=== PATIENT | male | born 1985 | race Caucasian/White ===

== ENCOUNTER 2023-11-30 06:35 | Day surgery (SDC) | payer OTHER, SELFPAY ==
[2023-11-25 08:34] VITALS: BMI 33.7
--- NOTE | 2023-11-30 | PATH_ITS ---
[facility] Accession Number: [id number] No. of containers..01 Tissue . 01 Material submitted: . flank - FLANK LIPOMAS . 01 Diagnosis: Flank, Excisions: Fragments of mature fibroadipose tissue, consistent with lipoma; see note. . Note: There are focal increased vessels present, therefore an additional consideration could include a benign angiolipoma variant. [facility] 12/06/2023 1027 Local . 01 Electronically signed: . Morgan Velasquez MD, Dermatopathologist NPI- [id number] . 01 Gross description: . The specimen is received in formalin labeled with the patient's name, , and flank lipomas, consists of multiple, yellow, lobulated, soft tissue fragments aggregating to 5.6 x 5.5 x 1.3 cm. Sectioning reveals a yellow, lobulated, unremarkable cut surface. Manual Machinist sections are submitted in cassettes A1-A2. ([id number]) /MRV 12/02/2023 1831 Local . 01 Pathologist provided ICD-10: D17.9 . 01 CPT . 125798 Specimen Comment: A courtesy copy of this report has been sent to [phone] Performed at: 01 [facility] [address] [place] [address] [address] [facility], [place], [place] [id number] MD Osmar Zambrano MD Phone: [phone]
[2023-11-30 06:54] VITALS: BP 139/91; PULSE 68; RESP 16; TEMP 36.4; O2SAT 98; BMI 31.4
[2023-11-30] MEDS: LACTATED RINGERS 1,000 ML 42 ML IV (07:04)
[2023-11-30 07:20] VITALS: BP 107/69; PULSE 68; RESP 16; O2SAT 96
--- NOTE | 2023-11-30 07:29 | SUR.PREOP ---
Patient states that he is feeling hot and somewhat dizzy and flushed. Patient appears pale. Placed patient down flat and rechecked vitals. BP 107/69; blood sugar 97; cool cloth to forehead. After being supine, recheck of blood pressure 121/83. Opened IV fluids for hydration. Symptoms resolved.
--- NOTE | 2023-11-30 07:43 | PM.PREOP ---
Pre-operative Note COVID-19 COVID-19 status: Not tested Interval Note History & Physical reviewed/Exam performed by Physician: Yes Changes to H&P: No ASA Class (for procedural sedation): II
--- NOTE | 2023-11-30 08:18 | SUR.OPER ---
Lateral on a fitzpatrick bag, head on pillow, gel axillary roll in place, bottom leg bent with gel pad under knee to foot, upper leg straight and supported with pillows. Upper arm supported by pillows and secured over bottom arm to padded arm board. Safety belt at hip, tape over blanket lower legs.
[2023-11-30] MEDS: LIDOCAINE 1% 20 ML, EPINEPHrine 0.2 MG INJ (08:27)
[2023-11-30] MEDS: BUPIVACAINE 0.25% (PF) VIAL 30 ML INJ (08:28)
[2023-11-30 08:55] VITALS: BP 104/81; PULSE 100; RESP 12; TEMP 36.9; O2SAT 98
[2023-11-30 09:00] VITALS: BP 132/88; PULSE 93; RESP 17; O2SAT 99
[2023-11-30 09:05] VITALS: BP 129/91; PULSE 89; RESP 15; TEMP 36.8; O2SAT 100
--- NOTE | 2023-12-09 10:43 | PM.OP.1 ---
Operative Date/Time/Diagnoses Date of procedure: 11/30/23 Time of procedure: 09:00 Pre-op diagnosis: Left flank lipomas Post-op diagnosis: same Procedure & Clinicians Procedure: Excisional biopsy of left-sided flank lipomas Same procedure as scheduled: Yes Surgeon: Garrett Galloway Anesthesia Type: General Operative Notes Procedure in detail: The patient is a 38-year-old man with 3 left-sided flank lipomas that were bothering him. He was consented for excisional biopsy of left-sided flank lipomas in the operating room. The patient was brought to the operating room, placed on the table supine position and general anesthesia was induced. He was then positioned in the right lateral decubitus position with the left side up. His left torso was prepped and draped in the usual fashion and a time-out was performed. The first lipoma was the more anterior lipoma. We made a 5 cm transverse incision over the mass and dissected down to the lipoma which was excavated from surrounding tissue with a combination of blunt dissection and cautery. Good hemostasis was achieved. Additional local was injected into the wound and then the wound was closed in layers using multiple interrupted 3-0 Vicryl dermal sutures and a running 4-0 Monocryl subcuticular stitch. We then moved onto the posterior lipomas which were close to each other. We made a 5 cm incision over the 2 masses and dissected down to the masses. We then dissect each free from the surrounding tissue. The larger 1 was about 3 cm and the smaller 1 was about 2 cm. Additional local was injected into the wound and then the wound was closed in layers using multiple interrupted 3-0 Vicryl dermal sutures and a running 4-0 Monocryl subcuticular stitch. Dressings were applied and the patient was awakened and brought to recovery room. EBL: 10 mL Specimens: Left flank lipomas Post-operative Condition: stable Disposition: PACU
== END 2023-11-30 09:15 | disposition home or self-care (01) ==
PROVIDERS: PCP Physician Assistant; Referring Provider Surgery; Visit Provider Surgery
PROC: (CPT 21931; principal; 2023-11-30 07:45)
DX: D17.9 Benign lipomatous neoplasm, unspecified (principal)
CPT/HCPCS: 21931; 21930; 82962; J0171; J1100; J2250; J2405; J2704; J3010